=== PATIENT | female | born 1990 | race Two or more races ===

== ENCOUNTER 2024-04-14 13:04 | Emergency (ER) | payer MEDICAID ==
[~2024-04-14] VITALS: Ht 149.9 cm; Wt 55.0 kg
[~2024-04-14 13:04] MED LIST: OMEP40CA20 MT; ONDA4TAB50 MT
[2024-04-14 13:15] VITALS: O2SAT 99
[2024-04-14 17:15] LABS: CLARITY URINE CLEAR (CLEAR); COLOR URINE YELLOW (YELLOW); GLUCOSE URINE NEGATIVE (NEGATIVE); KETONES URINE 1+ (NEGATIVE); LEUKOCYTE ESTERASE URINE NEGATIVE (NEGATIVE); NITRITE URINE NEGATIVE (NEGATIVE); OCCULT BLOOD URINE NEGATIVE (NEGATIVE); PROTEIN URINE NEGATIVE (NEGATIVE); SPECIFIC GRAVITY URINE 1.014 (1.005-1.030)
[2024-04-14 17:25] VITALS: BP 137/89; PULSE 94; RESP 18; TEMP 98
== END 2024-04-14 17:26 | disposition home or self-care (01) ==
LOC: ER 13:04
DX: N89.8 Other specified noninflammatory disorders of vagina (principal); Z98.51 Tubal ligation status
CPT/HCPCS: 81003; 81025; 87210; 87491; 87591; 99283

== ENCOUNTER 2024-05-07 09:15 | Emergency (ER) | payer MEDICAID ==
[~2024-05-07] VITALS: Ht 149.9 cm; Wt 68.0 kg
[2024-05-07 09:18] VITALS: O2SAT 100
[2024-05-07 09:30] VITALS: BP 138/86; PULSE 65; RESP 16; TEMP 98; O2SAT 100
[2024-05-07 10:17] LABS: BASOPHILS % 0.2 % (0.0-2.0); EOSINOPHILS % 0.3 % (0.0-5.0); HEMATOCRIT. 38.2 % (36.0-48.0); HEMOGLOBIN. 12.6 g/dL (12.0-16.0); LYMPHOCYTES % 8.6 % (20.0-50.0); MEAN CORPUSCULAR HEMOGLOBIN 29.7 pg (28.0-32.0); MEAN CORPUSCULAR VOLUME 89.9 fL (81.0-99.0); MONOCYTES % 3.5 % (2.0-8.0); NEUTROPHILS % 87.4 % (40.0-76.0); PLATELET 195 x1000/uL (130-400); RED BLOOD CELL COUNT 4.25 mill/uL (4.2-5.4); RED CELL DISTRIBUTION WIDTH 13.3 % (11.6-14.6); WHITE BLOOD COUNT 14.2 x1000/uL (4.5-11.0)
[2024-05-07 10:22] LABS: CHLORIDE 109 mEq/L (98-107); POTASSIUM 3.6 mEq/L (3.5-5.1); SODIUM 139 mEq/L (136-145)
[2024-05-07 10:23] LABS: CARBON DIOXIDE 23 mEq/L (21-32)
[2024-05-07 10:24] LABS: CALCIUM 9.4 mg/dL (8.7-10.4)
[2024-05-07 10:28] LABS: CREATININE 0.8 mg/dL (0.6-1.0); GLUCOSE 122 mg/dL (70-105)
[2024-05-07 10:29] LABS: UREA NITROGEN BLOOD 11 mg/dL (9-23)
[2024-05-07] MEDS: MAGNESIUM/ALUMINUM HYDROXIDE/SIMETHICONE 30ML UDC PO STA (10:29)
[2024-05-07 10:30] LABS: ALANINE AMINOTRANSFERASE 9 IU/L (10-49); ALBUMIN 4.7 g/dL (3.2-4.8); ASPARTATE AMINOTRANSFERASE 15 IU/L (<34)
[2024-05-07] MEDS: SODIUM CHLORIDE 0.9% 1,000 ML IV ONE (10:30)
[2024-05-07] MEDS: HALOPERIDOL LACTATE 5MG/ML VIAL IM ONE (10:30)
[2024-05-07 10:31] LABS: BILIRUBIN DIRECT 0.1 mg/dL (<=3.0); BILIRUBIN TOTAL 0.5 mg/dL (0.1-1.0); PROTEIN TOTAL 7.4 g/dL (6.0-8.3)
[2024-05-07 11:10] LABS: HCG SCREEN NEGATIVE
[2024-05-07 11:19] LABS: CLARITY URINE CLOUDY (CLEAR); COLOR URINE YELLOW (YELLOW); GLUCOSE URINE NEGATIVE (NEGATIVE); KETONES URINE 1+ (NEGATIVE); LEUKOCYTE ESTERASE URINE 2+ (NEGATIVE); NITRITE URINE NEGATIVE (NEGATIVE); OCCULT BLOOD URINE NEGATIVE (NEGATIVE); PH URINE 5.5 (4.5-8.0); PROTEIN URINE NEGATIVE (NEGATIVE); SPECIFIC GRAVITY URINE 1.016 (1.005-1.030)
[2024-05-07 11:30] LABS: BACTERIA URINE TRACE; RBC URINE 0-2 /hpf (0-2); SQUAMOUS EPITHELIAL CELL URINE 2+ /lpf (RARE/1+); YEAST URINE NONE SEEN
[2024-05-07 11:32] LABS: UCG SCREEN NEGATIVE
[2024-05-07 11:49] LABS: *AMPHETAMINES SCREEN URINE NEGATIVE (NEGATIVE)
[2024-05-07 11:50] LABS: *BARBITURATES SCREEN URINE NEGATIVE (NEGATIVE); *BENZODIAZEPINES SCREEN URINE NEGATIVE (NEGATIVE); *COCAINE SCREEN URINE NEGATIVE (NEGATIVE); CANNABINOID URINE SCREEN PRESUMPTIVE POSITIVE (NEGATIVE); ECSTASY MDMA SCREEN URINE NEGATIVE (NEGATIVE); METHADONE URINE SCREEN NEGATIVE (NEGATIVE); OPIATES URINE SCREEN NEGATIVE (NEGATIVE); PHENCYCLIDINE URINE SCREEN NEGATIVE (NEGATIVE)
[2024-05-07] MEDS ORDERED: CEPH250C2 MT (12:16)
[2024-05-07] MEDS ORDERED: OMEP40CA20 MT (12:16)
[2024-05-07] MEDS: PANTOPRAZOLE SODIUM 40 MG/VIAL IV STA (12:37)
[2024-05-07] MEDS: CEFTRIAXONE 1GM/50ML 50 ML IV ONE (12:38)
[2024-05-07] MEDS: DIPHENHYDRAMINE 50MG/ML VIAL IV ONE ×2 (12:38)
[2024-05-07] MEDS: ONDANSETRON HCL 4MG/2ML INJ IV STA (12:38)
[2024-05-07] MEDS: ACETAMINOPHEN 1000MG/100ML 100 ML IV ONE (12:38)
== END 2024-05-07 10:12 | disposition left against medical advice (07) ==
LOC: ER 09:15
DX: F12.90 Cannabis use, unspecified, uncomplicated (principal); N39.0 Urinary tract infection, site not specified; F19.90 Other psychoactive substance use, unspecified, uncomplicated
CPT/HCPCS: 80076; 80305; 80048; 81003; 81025; 84703; 83690; 85025; 86850; 86900; 86901; 87086; 36415; 96360; 96372; 99283; J0696; J1200; J1630; J2405; J2470; J7030; Z7610; J0131

== ENCOUNTER 2024-07-31 08:41 | Emergency (ER) | payer MEDICAID ==
[~2024-07-31] VITALS: Ht 149.9 cm; Wt 65.0 kg
[~2024-07-31 08:41] MED LIST changes: +CEPH250C2 MT
[2024-07-31 08:44] VITALS: O2SAT 98
[2024-07-31] MEDS: ONDANSETRON 4MG ODT PO ONE (09:11)
[2024-07-31] MEDS: MAGNESIUM/ALUMINUM HYDROXIDE/SIMETHICONE 30ML UDC PO STA (09:13)
[2024-07-31] MEDS: ONDANSETRON HCL 4MG/2ML INJ IV ONE (09:15)
[2024-07-31] MEDS: VISCOUS LIDOCAINE 2% 15 ML UDC PO NR (09:15)
[2024-07-31 09:24] LABS: CLARITY URINE CLEAR (CLEAR); COLOR URINE YELLOW (YELLOW); GLUCOSE URINE NEGATIVE (NEGATIVE); KETONES URINE NEGATIVE (NEGATIVE); LEUKOCYTE ESTERASE URINE 1+ (NEGATIVE); NITRITE URINE NEGATIVE (NEGATIVE); OCCULT BLOOD URINE 3+ (NEGATIVE); PH URINE 5.5 (4.5-8.0); PROTEIN URINE NEGATIVE (NEGATIVE); SPECIFIC GRAVITY URINE 1.016 (1.005-1.030); UROBILINOGEN URINE 0.2 E.U./dL (0.2-1.0)
[2024-07-31] MEDS: FAMOTIDINE 20MG TABLET PO ONE (09:29)
[2024-07-31] MEDS: SODIUM CHLORIDE 0.9% 1,000 ML IV ONE (09:29)
[2024-07-31] MEDS: FAMOTIDINE 20MG/2ML VIAL IV ONE (09:33)
[2024-07-31 09:43] LABS: BACTERIA URINE 2+; SQUAMOUS EPITHELIAL CELL URINE 2+ /lpf (RARE/1+); YEAST URINE NONE SEEN
[2024-07-31 09:44] LABS: BASOPHILS % 0.4 % (0.0-2.0); EOSINOPHILS % 0.4 % (0.0-5.0); HEMATOCRIT. 39.3 % (36.0-48.0); HEMOGLOBIN. 12.7 g/dL (12.0-16.0); LYMPHOCYTES % 8.9 % (20.0-50.0); MEAN CORPUSCULAR HEMOGLOBIN 29.8 pg (28.0-32.0); MEAN CORPUSCULAR HGB CONC 32.4 g/dL (31.0-37.0); MEAN CORPUSCULAR VOLUME 91.9 fL (81.0-99.0); MEAN PLATELET VOLUME 10.4 fl (7.4-10.4); MONOCYTES % 2.6 % (2.0-8.0); NEUTROPHILS % 87.7 % (40.0-76.0); PLATELET 224 x1000/uL (130-400); RED BLOOD CELL COUNT 4.27 mill/uL (4.2-5.4); RED CELL DISTRIBUTION WIDTH 14.1 % (11.6-14.6); WHITE BLOOD COUNT 13.4 x1000/uL (4.5-11.0)
[2024-07-31] MEDS: HALOPERIDOL LACTATE 5MG/ML VIAL IM ONE (09:51)
[2024-07-31 10:06] LABS: HCG SCREEN NEGATIVE
[2024-07-31] MEDS: CALCIUM GLUCONATE 1GM PREMIX 50 ML IV ONE (10:50)
[2024-07-31 11:14] LABS: CHLORIDE 114 mEq/L (98-107); POTASSIUM 3.5 mEq/L (3.5-5.1); SODIUM 143 mEq/L (136-145)
[2024-07-31 11:15] LABS: CARBON DIOXIDE 21 mEq/L (21-32)
[2024-07-31 11:16] LABS: CALCIUM 8.6 mg/dL (8.7-10.4)
[2024-07-31 11:21] LABS: CREATININE 0.6 mg/dL (0.6-1.0); GLUCOSE 133 mg/dL (70-105); UREA NITROGEN BLOOD 9 mg/dL (9-23)
[2024-07-31 11:22] LABS: ALANINE AMINOTRANSFERASE < 7 IU/L (10-49); ASPARTATE AMINOTRANSFERASE 14 IU/L (<34)
[2024-07-31 11:23] LABS: BILIRUBIN DIRECT 0.1 mg/dL (<=3.0); BILIRUBIN TOTAL 0.4 mg/dL (0.1-1.0); PROTEIN TOTAL 6.4 g/dL (6.0-8.3)
[2024-07-31 13:02] VITALS: BP 108/55; PULSE 53; RESP 14; TEMP 37.00296; O2SAT 98
== END 2024-07-31 13:03 | disposition home or self-care (01) ==
LOC: ER 08:41
DX: F12.90 Cannabis use, unspecified, uncomplicated (principal); R10.9 Unspecified abdominal pain
CPT/HCPCS: 80076; 80048; 81003; 81025; 84703; 83690; 85025; 36415; 96361; 96365; 96372; 96375; 99284; Q0162; J0610; J3490; J1630; J2405; J7030; Z7610